=== PATIENT | female | born 1950 | race Caucasian/White ===

== ENCOUNTER 2018-02-28 10:52 | Emergency (ER) | payer MEDICARE, BC ==
[2018-02-28] MEDS ORDERED: METHYLPREDNISOLONE PF 125MG/VIAL IVP ONE (11:02)
[2018-02-28] MEDS ORDERED: IPRATROPIUM/ALBUTEROL (0.5MG/3MG) NEB INH ONE (11:03)
[2018-02-28] MEDS ORDERED: 0.9 % SODIUM CHLORIDE 1000ML 1,000 ML IV PRN (11:03)
[2018-02-28 11:13] LABS: BASO % 0.6 % (0-6); GRAN % 68.4 % (47-80); HEMATOCRIT 41.8 % (35.0-47.0); HEMOGLOBIN 14.4 gm/dl (11.6-16.0); LYMPH % 20.4 % (16-45); MEAN CELL VOLUME 94.8 fl (81-97); MEAN CORPUSCULAR HEMOGLOBIN 32.7 pg (27-33); MEAN CORPUSCULAR HGB CONC 34.4 g/dl (32-36); MEAN PLATELET VOLUME 9.6 fl (7.4-10.4); MONO % 10.6 % (0-9); PLATELET COUNT 264 K/uL (130-400); RED BLOOD COUNT 4.41 M/uL (3.80-5.40); RED CELL DISTRIBUTION WIDTH 12.6 % (11.5-14.5); WHITE BLOOD COUNT W/O DIFF 11.7 K/uL (4.2-12.2)
[2018-02-28 11:28] LABS: BLOOD UREA NITROGEN 11 mg/dL (8-23)
[2018-02-28 11:29] LABS: CREATININE 0.7 mg/dL (0.5-0.9); EST GLOMERULAR FILTRATION RATE > 60 mL/min
[2018-02-28 11:31] LABS: GLUCOSE,RANDOM 113 mg/dL (74-109)
--- NOTE | 2018-02-28 12:17 | Emergency Department Record ---
History of Present Illness - General Chief Complaint: Difficulty Breathing Stated Complaint: PRITESH Time Seen by Provider: 02/28/18 11:03 Source: Patient Mode of Arrival: Ambulatory - History of Present Illness Initial Comments: patient had a sinus infection 3 weeks ago placed on ceftnir 500 mg bid for 10 days and finished it 5 days ago and she had asthma as a child and diagnosised with copd 12 years ago. Patient uses atrovent and albuterol inhalers at home . Onset/Timin -: Week(s) Known History Of: COPD Treatments Prior to Arrival: None - Related Data Home Medications Medication Instructions Recorded Confirmed Last Taken Anastrozole [Arimidex] 1 mg PO DAILY 02/28/18 02/28/18 02/28/18 Chlordiazepoxide/Clidinium Br 1 each PO BID 02/28/18 02/28/18 02/28/18 [Librax Capsule] Hydrochlorothiazide [Hctz 12.5MG] 12.5 mg PO QHS 02/28/18 02/28/18 02/27/18 Ipratropium [place] [Atrovent Hfa] 12.9 gm IH QID 02/28/18 02/28/18 02/28/18 Losartan Potassium 100 mg PO QHS 02/28/18 02/28/18 02/27/18 Methenamine Hippurate 1 gm PO BID 02/28/18 02/28/18 02/28/18 Tramadol HCl [Ultram] 50 mg PO BID 02/28/18 02/28/18 02/28/18 Previous Rx's Medication Instructions Recorded Azithromycin [Zithromax] 250 mg PO DAILY #6 tablet 02/28/18 Prednisone [Prednisone 10Mg] 10 mg PO ASDIR #30 tab 02/28/18 Allergies Allergy/AdvReac Type Severity Reaction Status Date / Time morphine Allergy HYPERSENSIT Verified 02/28/18 11:12 IVITY Travel Screening - Travel/Exposure Within Last 30 Days Have you traveled within the last 30 days?: No - Travel/Exposure Within Last Year Have you traveled outside the [place] in the last year?: No - Additonal Travel Details Have you been exposed to anyone with a communicable illness?: No - Travel Symptoms Symptom Screening: None Review of Systems Reviewed: No additional complaints except as noted below Constitutional: Reports: As per HPI. Denies: Chills, Fever, Malaise, Night sweats, Weakness, Weight change Eyes: Reports: As per HPI. Denies: Eye discharge, Eye pain, Photophobia, Vision change ENT: Reports: As per HPI, Congestion. Denies: Dental pain, Ear pain, Epistaxis , Hearing loss, Throat pain Respiratory: Reports: As per HPI, Cough, Dyspnea. Denies: Hemoptysis, Stridor, Wheezes Cardiovascular: Reports: As per HPI. Denies: Arrhythmia, Chest pain, Dyspnea on exertion, Edema, Murmurs, Orthopnea, Palpitations, Paroxysmal nocturnal dyspnea, Rheumatic Fever, Syncope Endocrine: Reports: As per HPI. Denies: Fatigue, Heat or cold intolerance, Polydipsia, Polyuria Gastrointestinal: Reports: As per HPI. Denies: Abdominal pain, Constipation, Diarrhea, Hematemesis, Hematochezia, Melena, Nausea, Vomiting Genitourinary: Reports: As per HPI. Denies: Abnormal menses, Discharge, Dyspareunia, Dysuria, Frequency, Hematuria, Incontinence, Retention, Urgency Musculoskeletal: Reports: As per HPI. Denies: Arthralgia, Back pain, Gout, Joint swelling, Myalgia, Neck pain Skin: Reports: As per HPI. Denies: Bruising, Change in color, Change in hair/ nails, Lesions, Pruritus, Rash Neurological: Reports: As per HPI. Denies: Abnormal gait, Confusion, Headache, Numbness, Paresthesias, Seizure, Tingling, Tremors, Vertigo, Weakness Psychiatric: Reports: As per HPI. Denies: Anxiety, Auditory hallucinations, Depression, Homicidal thoughts, Suicidal thoughts, Visual hallucinations Hematological/Lymphatic: Reports: As per HPI. Denies: Anemia, Blood Clots, Easy bleeding, Easy bruising, Swollen glands Past Medical History - SOCIAL HISTORY Smoking Status: Never smoker Alcohol Use: None Drug Use: None - RESPIRATORY Hx Respiratory Disorders: Yes Hx COPD: Yes (no smoking hx) - CARDIOVASCULAR Hx Cardio Disorders: Yes Hx Hypertension: Yes - NEURO Hx Neuro Disorders: No - GI Hx GI Disorders: Yes Hx Irritable Bowel: Yes - Hx Genitourinary Disorders: No - ENDOCRINE Hx Endocrine Disorders: No - MUSCULOSKELETAL Hx Musculoskeletal Disorders: No - PSYCH Hx Psych Problems: No - HEMATOLOGY/ONCOLOGY Hx Hematology/Oncology Disorders: Yes Hx Cancer: Yes (breast cancer) Hx Radiation Therapy: Yes Family Medical History Any Significant Family History?: No Physical Exam - General General Appearance: Alert, Oriented x3, Cooperative, No acute distress - Head Head exam: Normal inspection - Eye Eye exam: Normal appearance, PERRL Pupils: Normal accommodation - ENT ENT exam: Normal exam, Mucous membranes moist, Normal external ear exam, Normal orophraynx, TM's normal bilaterally Ear exam: Normal external inspection. negative: External canal tenderness Nasal Exam: Normal inspection. negative: Discharge, Sinus tenderness Mouth exam: Normal external inspection, Tongue normal Teeth exam: Normal inspection. negative: Dental caries Throat exam: Normal inspection. negative: Tonsillar erythema, Tonsillar exudate - Neck Neck exam: Normal inspection, Full ROM. negative: Tenderness - Respiratory Respiratory exam: Respiratory distress, Wheezes - Cardiovascular Cardiovascular Exam: Regular rate, Normal rhythm, Normal heart sounds - GI/Abdominal GI/Abdominal exam: Soft, Normal bowel sounds. negative: Tenderness - Rectal Rectal exam: Deferred - exam: Deferred - Extremities Extremities exam: Normal inspection, Full ROM, Normal capillary refill. negative: Tenderness - Back Back exam: Reports: Normal inspection, Full ROM. Denies: Muscle spasm, Rash noted, Tenderness - Neurological Neurological exam: Alert, Normal gait, Oriented X3, Reflexes normal - Psychiatric Psychiatric exam: Normal affect, Normal mood - Skin Skin exam: Dry, Intact, Normal color, Warm Course Vital Signs 02/28/18 02/28/18 02/28/18 11:02 11:05 11:56 Temperature 97.8 F Pulse Rate 95 H 95 H Pulse Rate [ 81 Pulse Ox Probe] Respiratory 24 20 18 Rate Blood Pressure 176/115 Blood Pressure 126/72 [Right Arm] Pulse Ox 88 L 95 92 L - Reevaluation(s) Reevaluation #1: patient is breathing better and scant wheezing 02/28/18 12:31 Reevaluation #2: feeling better 02/28/18 14:08 Reevaluation #3: patient oxygen 91 % on room air and she is feeling better 02/28/18 14:17 Medical Decision Making - Data Complexity MDM Data: Labs Ordered and/or Reviewed, X-Ray Ordered and/or Reviewed ( hyperinflated lungs, COPD , no infiltrate) - Lab Data Result diagrams: 02/28/18 11:05 02/28/18 11:05 Lab Results 02/28/18 02/28/18 02/28/18 Range/Units 11:05 11:05 11:05 WBC 11.7 (4.2-12.2) K/uL RBC 4.41 (3.80-5.40) M/uL Hgb 14.4 (11.6-16.0) gm/dl Hct 41.8 (35.0-47.0) % MCV 94.8 (81-97) fl MCH 32.7 (27-33) pg MCHC 34.4 (32-36) g/dl RDW 12.6 (11.5-14.5) % Plt Count 264 (130-400) K/uL MPV 9.6 (7.4-10.4) fl Gran % 68.4 (47-80) % Lymphocytes % 20.4 (16-45) % Monocytes % 10.6 H (0-9) % Eosinophils % 0.0 (0-6) % Basophils % 0.6 (0-6) % APTT 27.7 (24.5-39.1) SECONDS Sodium 137 (136-145) mmol/L Potassium 4.0 (3.4-4.5) mmol/L Chloride 96 L (98-107) mmol/L Carbon Dioxide 27.0 (22-29) mmol/L Anion Gap 14.0 (7-16) BUN 11 (8-23) mg/dL Creatinine 0.7 (0.5-0.9) mg/dL Estimated GFR > 60 mL/min Random Glucose 113 H (74-109) mg/dL Calcium 9.0 (8.8-10.2) mg/dL Troponin T < 0.010 (0-0.010) ng/mL 02/28/18 Range/Units 11:05 WBC (4.2-12.2) K/uL RBC (3.80-5.40) M/uL Hgb (11.6-16.0) gm/dl Hct (35.0-47.0) % MCV (81-97) fl MCH (27-33) pg MCHC (32-36) g/dl RDW (11.5-14.5) % Plt Count (130-400) K/uL MPV (7.4-10.4) fl Gran % (47-80) % Lymphocytes % (16-45) % Monocytes % (0-9) % Eosinophils % (0-6) % Basophils % (0-6) % APTT (24.5-39.1) SECONDS Sodium (136-145) mmol/L Potassium (3.4-4.5) mmol/L Chloride (98-107) mmol/L Carbon Dioxide (22-29) mmol/L Anion Gap (7-16) BUN (8-23) mg/dL Creatinine (0.5-0.9) mg/dL Estimated GFR mL/min Random Glucose (74-109) mg/dL Calcium (8.8-10.2) mg/dL Troponin T Cancelled (0-0.010) ng/mL Disposition Clinical Impression: COPD (chronic obstructive pulmonary disease) with acute bronchitis Disposition: Home, Self-Care Condition: (1) Good Additional Instructions: follow up with Dr Escobar in 3 to 4 days Prescriptions: Azithromycin [Zithromax] 250 mg PO DAILY #6 tablet Prednisone [Prednisone 10Mg] 10 mg PO ASDIR #30 tab Forms: Patient Portal Access Time of Disposition: 14:13 Quality - Quality Measures Quality Measures: N/A - Blood Pressure Screening Does Patient Have Any of the Following: No Blood Pressure Classification: Hypertensive Reading Systolic Measurement: 176 Diastolic Measurement: 115 Screening for High Blood Pressure: < Pre-Hypertensive BP, F/U Documented > [ [id number]] Pre-Hypertensive Follow-up Interventions: Referral to alternative/primary care provider.
[2018-02-28] MEDS ORDERED: AZITHROMYCIN 500 MG TABLET PO ONE (12:18)
[2018-02-28] MEDS ORDERED: CEFTRIAXONE SODIUM 1 GM in 0.9 % SODIUM CHLORIDE 100ML 100 ML IVPB ONE (12:18)
[2018-02-28] MEDS ORDERED: ALBUTEROL SULFATE (0.083%) 2.5 MG/3 ML NEB INH ONE (12:19)
--- NOTE | 2018-03-02 09:28 | RADIOLOGY REPORT ---
EXAM: CHEST, TWO VIEWS HISTORY: SHORTNESS OF BREATH AND CONGESTION. HISTORY OF COPD. TECHNIQUE: PA and lateral views of the chest were obtained. Comparison: None. FINDINGS: The cardiac silhouette is within normal size limits. The thoracic aorta is tortuous. The lungs are hyperinflated. No definite focal pulmonary consolidation. No visible pleural effusion or pneumothorax. IMPRESSION: THE LUNGS ARE HYPERINFLATED, COMPATIBLE WITH HISTORY OF COPD. NO FOCAL PULMONARY CONSOLIDATION SEEN. JOB NUMBER: [id number] MTDD
== END 2018-02-28 14:45 | disposition home or self-care (01) ==
LOC: ER 10:52
DX: J44.0 Chronic obstructive pulmonary disease with (acute) lower respiratory infection (principal); J20.9 Acute bronchitis, unspecified; I10 Essential (primary) hypertension
CPT/HCPCS: 71046; 80048; 84484; 85025; 85730; 94640; 96365; 96375; 99284; J2930; J7613